=== PATIENT | male | born 1980 | race Caucasian/White ===

== ENCOUNTER 2025-04-07 19:56 | Emergency (ER) | payer SELFPAY ==
[2025-04-07 19:57] VITALS: BP 121/104; PULSE 88; RESP 14; TEMP 36.9; O2SAT 99; BMI 31.8
[2025-04-07 19:59] VITALS: BP 130/81; PULSE 81; RESP 18; TEMP 36.6; O2SAT 97
--- NOTE | 2025-04-07 20:13 | US_ITS ---
PROCEDURE: TESTICULAR WITH ARTERIAL FLOW 04/07/2025 REASON FOR EXAM: LEFT TESTICULAR PAIN TECHNIQUE: TESTICULAR WITH ARTERIAL FLOW COMPARISON: None FINDINGS: RIGHT testicle: 4.7 x 3.1 x 2.3 cm Homogeneous echotexture. No intratesticular mass. There is a scrotal ruth at the lower pole of the right testicle. Right epididymis: Unremarkable LEFT testicle: 4.0 x 3.0 x 2.3 cm Slightly heterogeneous echotexture. Left epididymis: Unremarkable Other findings: Moderate hydroceles bilaterally containing low-lying internal debris. No hydrocele or large varicocele. DOPPLER FINDINGS: There is increased color Doppler flow in the left epididymis and testicle relative to the right. Normal arterial inflow and venous outflow waveforms at both testes. US/Testicular with Arterial Flow IMPRESSION: 1. Findings suggestive of left-sided epididymo-orchitis. No current evidence of testicular torsion. Given heterogeneous appearance of the left testicle, consider repeat ultrasound in 8-12 weeks and/o r Urology referral as multifocal neoplasm could also have this appearance. 2. Bilateral hydroceles with low lying internal echogenicity, possibly chronic . Reading Location: [id number]
--- NOTE | 2025-04-07 20:14 | EDS_ITS ---
HPI History of Present Illness Chief Complaint: Male Pain/Injury Related History Sexually: Active Narrative Narrative: 45-year-old male presents with left testicular pain that has had since Friday, 4 days ago. He states there was a spot on his left testicle that was hurting him previously. Was more of a discomfort at that time. He had it intermittently the following day, and yesterday as well. Today, he dropped his child off in the emergency department and went for a walk and had more intense pain today, that radiated up into his abdomen. He denies any fevers or chills, no nausea or vomiting. He has had problems with chronic back pain but no dysuria, no dark urine. No exacerbating or alleviating factors. PFSH PFSH Home Medications ?Medication ?Instructions ?Recorded ?Last Taken ?Type ciprofloxacin HCl 500 mg tablet 500 mg PO BID #28 TABL ETS 04/07/25 Unknown Rx Allergy/AdvReac Type Severity Reaction Status Date / Time acetaminophen (From Vicodin) AdvReac Nausea Verified 04/07/25 20:00 hydrocodone (From Vicodin) AdvReac Nausea Verified 04/07/25 20:00 Social History Smoking Status: Never smoker ROS ROS ED ROS Narrative Review of systems positive for spot on posterior left testicle that causes him pain. No fevers or chills currently, no nausea or vomiting, positive chronic back pain. No dysuria or hematuria. No flank pain. EXAM Physical Exam Narrative Exam Narrative: Afebrile. Vital signs noted. Nontoxic-appearing. Cardiovascular examination reveals a regular rate and rhythm. Lungs are clear to auscultation bilaterally. Abdomen is soft and nontender with normal active bowel sounds, no guarding or rebound. Neurological examination nonfocal, nonlateralizing. Chaperoned testicular examination reveals mild tenderness to palpation in the posterior portion of the testicle along the epididymis. No noted hernia. No noted erythema or abscess. Const Vital Signs: 04/07/25 19:57 04/07/25 19:59 Temperature 98.4 F 98 F Temperature Source Oral Oral Pulse Rate 88 81 Respiratory Rate 14 18 Blood Pressure 121/104 H 130/81 H Blood Pressure Mean 109 97 Pulse Ox 99 97 Oxygen Delivery Method Room Air Room Air MDM MDM MDM Narrative Medical decision making narrative: Differential diagnosis includes but not limited to epididymitis versus varicocele versus hydrocele versus testicular torsion. His testicle appeared to have a normal lie, and there was no noted swelling and his symptoms have been ongoing since Friday, 4 days ago. I am less suspicious for torsion. Ultrasound and UA will be obtained. I reviewed his urinalysis and is negative for infection with 0-5 WBCs and 0 bacteria. Results of the ultrasound radiology report reviewed show findings suggestive of left-sided epididymoorchitis no evidence of torsion. They suggest repeat ultrasound in 8 to 12 weeks to ensure resolution and/or urology referral as multifocal neoplasm could appear similarly. Patient was informed of the findings and given his first ciprofloxacin here in the emergency department. Prescription was written for the next 2 weeks to take twice a day. I discussed analgesia with him and he declined any narcotic pain medications. I also suggested wearing more constrictive undergarments to help give more support to the testicles. I also stressed the importance of follow-up with urology. Patient acknowledged understanding. Return instructions were reviewed. Disposition is discharged home in stable condition. History & Record Review Discussion w/independent historian: Patient Lab Data Attestation: I reviewed the patient's lab results. Labs: Laboratory Results - last 24 hr 04/07/25 20:02 Urine Color Yellow Urine Clarity Clear Urine pH 6.0 Ur Specific [place] 1.020 Urine Protein Negative Urine Glucose (UA) Normal Urine Ketones Negative Urine Occult Blood Negative Urine Nitrite Negative Urine Bilirubin Negative Urine Urobilinogen Normal Ur Leukocyte Esterase Negative Urine RBC 0-5 SEEN Urine WBC 0-5 SEEN Ur Squamous Epith Cells 0-5 SEEN Urine Bacteria 0 SEEN Urine Mucus 0 SEEN Radiography Diagnostic Testing: Clinical Impression(s) from Imaging Studies Testicular Ultrasound 04/07/25 20:13 IMPRESSION: 1. Findings suggestive of left-sided epididymo-orchitis. No current evidence of testicular torsion. Given heterogeneous appearance of the left testicle, consider repeat ultrasound in 8-12 weeks and/or Urology referral as multifocal neoplasm could also have this appearance. 2. Bilateral hydroceles with low lying internal echogenicity, possibly chronic. Reading Location: [facility] Discharge Plan Triage Chief Complaint: Male Pain/Injury ED Provider: Bakari Saunders Dx/Rx/DC Orders Clinical Impression: Epididymo-orchitis, acute, Pain in left testicle Instructions: ED Epididymitis, ED Orchitis Prescriptions: New ciprofloxacin HCl 500 mg tablet 500 mg PO BID Qty: 28 0RF Primary Care Provider: Care Physician,No Primary Referrals: Ajith Whelan MD [Med Staff - Active Staff] - 1-2 Weeks Care Physician,No Primary [Primary Care Provider] - Activity Restrictions/Additional Instructions: Take all of the antibiotics as directed. Advil or ibuprofen as directed for pain. Wear more supportive undergarment while you are having testicular pain. It is important for you to follow-up with urology. He will need an ultrasound of the left testicle repeated in 8 to 12 weeks to ensure resolution. Print Language: [place] Disposition Disposition: Home, Self Care
[2025-04-07 20:27] LABS: Mucous, Urine 0 SEEN /hpf (<or=2+)
[2025-04-07 20:32] LABS: Color, Urine Yellow (Yellow); Glucose, Dipstick Normal (Normal); Ketone-Dipstick Negative (Negative); Leukocyte Esterase-Dipstick Negative /ul (Negative); Nitrite-Dipstick Negative (Negative); Occult Blood-Urine Negative /ul (Negative); Protein-Dipstick Negative (Negative); Specific Gravity, Urine 1.020 (1.002-1.030); Urine Bilirubin Dipstick Negative (Negative)
[2025-04-07 20:53] LABS: Red Blood Cells-Urine 0-5 SEEN /hpf (0-5); Squamous Epithelial Cells - UA 0-5 SEEN /hpf (0-5)
[2025-04-07 21:49] VITALS: BP 137/86; PULSE 85; RESP 18; TEMP 36.6; O2SAT 100
== END 2025-04-07 22:21 | disposition home or self-care (01) ==
PROVIDERS: Emergency Provider Emergency Medicine; Visit Provider Emergency Medicine
DX: N45.3 Epididymo-orchitis (principal); G89.29 Other chronic pain; N50.812 Left testicular pain; M54.9 Dorsalgia, unspecified
CPT/HCPCS: 76870; 81001; 93976; 99282